=== PATIENT | male | born 1990 | race Caucasian/White ===

== ENCOUNTER 2021-07-08 02:23 | Emergency (ER) | payer SELFPAY ==
[~2021-07-08] VITALS: Ht 170.2 cm; Wt 113.4 kg
--- NOTE | 2021-07-08 02:29 | NUR ---
LENY GOSS TAKEN TO BED #2
[2021-07-08 02:30] VITALS: BP 132/87
--- NOTE | 2021-07-08 02:30 | NUR ---
SEE COMEPLETE ASSESSMENT FOR FUTHER DETAILS.
--- NOTE | 2021-07-08 02:35 | NUR ---
ERMD AT BEDSIDE FOR MEDICAL EVALUATION.
--- NOTE | 2021-07-08 04:36 | NUR ---
Patient appears to be resting comfortably in bed. Patient remains on cardiac montior. Vital Signs within normal limits. Respirations even and unlabored.
--- NOTE | 2021-07-08 06:43 | NUR ---
PATIENT AMBULATED TO RESTROOM WITH STEADY GAIT.
--- NOTE | 2021-07-08 07:08 | NUR ---
Report received from Sarah CLARKE for continuity of care
--- NOTE | 2021-07-08 07:08 | NUR ---
GAVE REPORT TO GRICEL CLARKE, TRANSFER OF CARE.
--- NOTE | 2021-07-08 07:10 | NUR ---
pt awake, alert, walked to restroom steady gait.
[2021-07-08 07:16] VITALS: BP 116/67
--- NOTE | 2021-07-08 07:16 | NUR ---
Patient discharged with v/s stable. Written and verbal after care instructions given and explained. Patient alert, oriented and verbalized understanding of instructions. Ambulatory with steady gait. All questions addressed prior to discharge. ID band removed. Patient advised to follow up with PMD. Opportunity to ask questions provided and answered. Patient refused to sign D/C paperwork.
== END 2021-07-08 07:16 | disposition home or self-care (01) ==
LOC: MED 02:23
DX: F10.929 Alcohol use, unspecified with intoxication, unspecified (principal); Y90.9 Presence of alcohol in blood, level not specified
CPT/HCPCS: 70450; 99284